=== PATIENT | male | born 1970 | race Caucasian/White ===

== ENCOUNTER 2019-02-18 10:14 | Inpatient (IN) | payer MEDICAID ==
[~2019-02-18] VITALS: Ht 185.4 cm; Wt 75.3 kg
[~2019-02-18 10:14] MED LIST: ACID1TAB7 PO; ACYC-113 PO; ALEN10TA7 PO; ALLO300T PO; CARV3.1212 PO; LISI-167 PO; METH750T2 PO; MORP-29 PO; OXYC5TAB3 PO; PANT40TA5 PO; RISP0.5T24 PO
[2019-02-18 13:33] VITALS: BP 125/87
[2019-02-18] MEDS ORDERED: METHOCARBAMOL 750 MG TABLET PO PRN (16:30)
[2019-02-18 16:36] LABS: BASOPHILS # (AUTO) 0.03 x10^3/uL (0-0.1); BASOPHILS % (AUTO) 0 % (0-1); EOSINOPHILS # (AUTO) 0.21 x10^3/uL (0-0.4); EOSINOPHILS % (AUTO) 4 % (1-7); LYMPHOCYTES # (AUTO) 1.58 x10^3/uL (1-3.4); LYMPHOCYTES % (AUTO) 26 % (22-44); MD NO; MEAN CORPUSCULAR HGB CONC 32.6 g/dL (33.2-36.2); MEAN CORPUSCULAR VOLUME 89.1 fL (81-97); MEAN PLATELET VOLUME 6.4 fL (7.4-10.4); MONOCYTES # (AUTO) 0.57 x10^3/uL (0.2-0.8); MONOCYTES % (AUTO) 10 % (2-9); NEUTROPHILS # (AUTO) 3.62 x10^3/uL (1.8-6.8); NEUTROPHILS % (AUTO) 60 % (42-75); PLATELET COUNT 494 x10^3/uL (130-400); RED CELL DISTRIBUTION WIDTH 17.4 % (9.4-14.8)
[2019-02-18 16:47] LABS: ALANINE AMINOTRANSFERASE 24 U/L (12-78); ALBUMIN 3.5 g/dL (3.4-5.0); ANION GAP 5 mmol/L (5-15); CALCIUM 9.3 mg/dL (8.5-10.1); CHLORIDE 102 mmol/L (98-107); CREATININE 0.64 mg/dL (0.7-1.3)
[2019-02-18 16:49] LABS: ALKALINE PHOSPHATASE 102 U/L (45-117); BILIRUBIN,TOTAL 0.4 mg/dL (0.2-1.0); TOTAL PROTEIN 9.4 g/dL (6.4-8.2)
[2019-02-18] MEDS: CARVEDILOL 3.125 MG TABLET PO SCH (18:04)
[2019-02-18 19:33] VITALS: BP 118/82
[2019-02-18] MEDS: LACTOBACILLUS CHEW TABLET PO SCH (20:33)
[2019-02-18] MEDS: ACYCLOVIR 200 MG CAPSULE PO SCH (20:33)
[2019-02-18] MEDS: RISPERIDONE 0.5 MG TABLET PO SCH (20:33)
[2019-02-19 01:19] VITALS: BP 103/73
[2019-02-19 05:14] LABS: BASOPHILS # (AUTO) 0.06 x10^3/uL (0-0.1); BASOPHILS % (AUTO) 1 % (0-1); EOSINOPHILS # (AUTO) 0.22 x10^3/uL (0-0.4); EOSINOPHILS % (AUTO) 4 % (1-7); LYMPHOCYTES # (AUTO) 1.75 x10^3/uL (1-3.4); LYMPHOCYTES % (AUTO) 33 % (22-44); MD NO; MEAN CORPUSCULAR HEMOGLOBIN 28.7 pg (27.5-34.5); MEAN CORPUSCULAR HGB CONC 32.4 g/dL (33.2-36.2); MEAN CORPUSCULAR VOLUME 88.6 fL (81-97); MEAN PLATELET VOLUME 7.5 fL (7.4-10.4); MONOCYTES # (AUTO) 0.58 x10^3/uL (0.2-0.8); MONOCYTES % (AUTO) 11 % (2-9); NEUTROPHILS # (AUTO) 2.71 x10^3/uL (1.8-6.8); NEUTROPHILS % (AUTO) 51 % (42-75); PLATELET COUNT 464 x10^3/uL (130-400); RED BLOOD COUNT 3.43 x10^6/uL (4.38-5.82); RED CELL DISTRIBUTION WIDTH 16.9 % (9.4-14.8)
[2019-02-19 05:17] LABS: ALBUMIN 3.2 g/dL (3.4-5.0); ANION GAP 5 mmol/L (5-15); CHLORIDE 102 mmol/L (98-107)
[2019-02-19 05:19] LABS: CREATININE 0.57 mg/dL (0.7-1.3)
[2019-02-19] MEDS: CARVEDILOL 3.125 MG TABLET PO SCH ×2 (05:23→18:33)
[2019-02-19] MEDS: ALENDRONATE 10 MG TABLET PO SCH (05:23)
[2019-02-19] MEDS: PANTOPROZOLE 40MG TABLET PO SCH (05:23)
[2019-02-19 08:31] VITALS: BP 108/76
[2019-02-19] MEDS: LACTOBACILLUS CHEW TABLET PO SCH ×3 (09:36→21:20)
[2019-02-19] MEDS: OXYcodone IR 5MG TABLET PO PRN ×2 (09:36→16:44)
[2019-02-19] MEDS: ACYCLOVIR 200 MG CAPSULE PO SCH ×3 (09:37→21:21)
[2019-02-19] MEDS: ALLOPURINOL 300 MG TABLET PO SCH (09:37)
[2019-02-19] MEDS: LISINOPRIL 10 MG TABLET PO SCH (09:37)
[2019-02-19] MEDS ORDERED: SODIUM CHLORIDE 0.9% 1,000 ML IV SCH (11:00)
[2019-02-19] MEDS ORDERED: ONDANSETRON 16 MG in SODIUM CHLORIDE 0.9% 50 ML IVPB ONE (12:30)
[2019-02-19] MEDS ORDERED: BORTEZOMIB SQ ONE (13:00)
[2019-02-19] MEDS ORDERED: SODIUM CHLORIDE 0.9% IV ONE (13:15)
[2019-02-19] MEDS ORDERED: CYCLOPHOSPHAMIDE IV ONE (13:15)
[2019-02-19] MEDS: ENOXAPARIN 40 MG/0.4 ML SQ SCH (13:18)
[2019-02-19] MEDS: SODIUM CHLORIDE 0.9% 1,000 ML IV SCH (13:18)
[2019-02-19 13:19] VITALS: BP 100/67
[2019-02-19] MEDS: DEXAMETHASONE 4 MG TABLET PO SCH (14:37)
[2019-02-19 19:06] VITALS: BP 97/60
[2019-02-19] MEDS ORDERED: ACYCLOVIR 200 MG CAPSULE PO SCH (21:00)
[2019-02-19] MEDS: RISPERIDONE 0.5 MG TABLET PO SCH (21:21)
[2019-02-20 01:22] VITALS: BP 102/64
[2019-02-20] MEDS: OXYcodone IR 5MG TABLET PO PRN ×3 (05:19→17:22)
[2019-02-20] MEDS: PANTOPROZOLE 40MG TABLET PO SCH (05:19)
[2019-02-20] MEDS: ALENDRONATE 10 MG TABLET PO SCH (05:19)
[2019-02-20] MEDS: CARVEDILOL 3.125 MG TABLET PO SCH ×2 (05:19→17:24)
[2019-02-20] MEDS: SODIUM CHLORIDE 0.9% 1,000 ML IV SCH ×2 (05:19→20:11)
[2019-02-20 05:22] LABS: BASOPHILS # (AUTO) 0.02 x10^3/uL (0-0.1); BASOPHILS % (AUTO) 1 % (0-1); EOSINOPHILS % (AUTO) 0 % (1-7); LYMPHOCYTES % (AUTO) 29 % (22-44); MD NO; MEAN CORPUSCULAR HEMOGLOBIN 28.5 pg (27.5-34.5); MEAN CORPUSCULAR HGB CONC 32.6 g/dL (33.2-36.2); MEAN CORPUSCULAR VOLUME 87.5 fL (81-97); MEAN PLATELET VOLUME 6.4 fL (7.4-10.4); MONOCYTES # (AUTO) 0.02 x10^3/uL (0.2-0.8); MONOCYTES % (AUTO) 1 % (2-9); NEUTROPHILS # (AUTO) 3.14 x10^3/uL (1.8-6.8); NEUTROPHILS % (AUTO) 70 % (42-75); PLATELET COUNT 390 x10^3/uL (130-400); RED BLOOD COUNT 3.22 x10^6/uL (4.38-5.82)
[2019-02-20 05:35] LABS: ALANINE AMINOTRANSFERASE 20 U/L (12-78); ANION GAP 4 mmol/L (5-15); CALCIUM 8.6 mg/dL (8.5-10.1); CHLORIDE 103 mmol/L (98-107); CREATININE 0.54 mg/dL (0.7-1.3)
[2019-02-20 05:36] LABS: ALKALINE PHOSPHATASE 91 U/L (45-117); BILIRUBIN,TOTAL 0.3 mg/dL (0.2-1.0); TOTAL PROTEIN 8.4 g/dL (6.4-8.2)
[2019-02-20 07:35] VITALS: BP 120/78
[2019-02-20] MEDS: LACTOBACILLUS CHEW TABLET PO SCH ×3 (08:12→20:11)
[2019-02-20] MEDS: ALLOPURINOL 300 MG TABLET PO SCH (08:12)
[2019-02-20] MEDS: ACYCLOVIR 200 MG CAPSULE PO SCH ×2 (08:12→20:11)
[2019-02-20] MEDS: LISINOPRIL 10 MG TABLET PO SCH (08:13)
[2019-02-20] MEDS: DEXAMETHASONE 4 MG TABLET PO SCH (11:45)
[2019-02-20] MEDS: ENOXAPARIN 40 MG/0.4 ML SQ SCH (11:49)
[2019-02-20 13:56] VITALS: BP 126/81
[2019-02-20] MEDS ORDERED: ONDANSETRON ODT 4 MG ONE (17:16)
[2019-02-20 17:20] VITALS: BP 132/84
[2019-02-20] MEDS ORDERED: ONDANSETRON ODT 4 MG PO PRN (17:30)
[2019-02-20 20:09] VITALS: BP 114/71
[2019-02-20] MEDS: RISPERIDONE 0.5 MG TABLET PO SCH (20:11)
[2019-02-21 02:21] VITALS: BP 119/79
[2019-02-21] MEDS: CARVEDILOL 3.125 MG TABLET PO SCH ×2 (05:27→18:17)
[2019-02-21] MEDS: ALENDRONATE 10 MG TABLET PO SCH (05:27)
[2019-02-21] MEDS: PANTOPROZOLE 40MG TABLET PO SCH (05:27)
[2019-02-21 06:12] LABS: ANION GAP 8 mmol/L (5-15); CALCIUM 8.3 mg/dL (8.5-10.1); CHLORIDE 107 mmol/L (98-107); CREATININE 0.78 mg/dL (0.7-1.3)
[2019-02-21 06:22] LABS: BASOPHILS # (AUTO) 0.03 x10^3/uL (0-0.1); BASOPHILS % (AUTO) 0 % (0-1); EOSINOPHILS % (AUTO) 0 % (1-7); LYMPHOCYTES % (AUTO) 11 % (22-44); MD NO; MEAN CORPUSCULAR HEMOGLOBIN 28.7 pg (27.5-34.5); MEAN CORPUSCULAR HGB CONC 32.3 g/dL (33.2-36.2); MEAN CORPUSCULAR VOLUME 88.8 fL (81-97); MEAN PLATELET VOLUME 7.3 fL (7.4-10.4); MONOCYTES # (AUTO) 0.18 x10^3/uL (0.2-0.8); MONOCYTES % (AUTO) 2 % (2-9); NEUTROPHILS # (AUTO) 7.48 x10^3/uL (1.8-6.8); NEUTROPHILS % (AUTO) 87 % (42-75); PLATELET COUNT 380 x10^3/uL (130-400); RED BLOOD COUNT 3.16 x10^6/uL (4.38-5.82); RED CELL DISTRIBUTION WIDTH 16.6 % (9.4-14.8)
[2019-02-21 07:48] VITALS: BP 130/82
[2019-02-21] MEDS: LACTOBACILLUS CHEW TABLET PO SCH ×3 (08:54→20:07)
[2019-02-21] MEDS: ALLOPURINOL 300 MG TABLET PO SCH (08:54)
[2019-02-21] MEDS: LISINOPRIL 10 MG TABLET PO SCH (08:54)
[2019-02-21] MEDS: ACYCLOVIR 200 MG CAPSULE PO SCH ×2 (08:55→20:07)
[2019-02-21] MEDS: SODIUM CHLORIDE 0.9% 1,000 ML IV SCH (08:55)
[2019-02-21 08:59] LABS: BASOPHILS # (AUTO) 0.03 x10^3/uL (0-0.1); BASOPHILS % (AUTO) 0 % (0-1); EOSINOPHILS # (AUTO) 0.05 x10^3/uL (0-0.4); EOSINOPHILS % (AUTO) 1 % (1-7); LYMPHOCYTES # (AUTO) 0.79 x10^3/uL (1-3.4); LYMPHOCYTES % (AUTO) 9 % (22-44); MD NO; MEAN CORPUSCULAR HEMOGLOBIN 28.5 pg (27.5-34.5); MEAN CORPUSCULAR HGB CONC 32.4 g/dL (33.2-36.2); MEAN CORPUSCULAR VOLUME 87.9 fL (81-97); MEAN PLATELET VOLUME 6.7 fL (7.4-10.4); MONOCYTES # (AUTO) 0.29 x10^3/uL (0.2-0.8); MONOCYTES % (AUTO) 3 % (2-9); NEUTROPHILS % (AUTO) 87 % (42-75); PLATELET COUNT 368 x10^3/uL (130-400); RED BLOOD COUNT 3.11 x10^6/uL (4.38-5.82); RED CELL DISTRIBUTION WIDTH 17.2 % (9.4-14.8)
[2019-02-21] MEDS: ENOXAPARIN 40 MG/0.4 ML SQ SCH (12:22)
[2019-02-21 13:26] VITALS: BP 114/74
[2019-02-21] MEDS: RISPERIDONE 0.5 MG TABLET PO SCH (20:08)
[2019-02-21] MEDS: OXYcodone IR 5MG TABLET PO PRN (20:16)
[2019-02-21 21:18] VITALS: BP 116/67
[2019-02-22] MEDS: SODIUM CHLORIDE 0.9% 1,000 ML IV SCH ×2 (00:23→15:40)
[2019-02-22 02:00] VITALS: BP 127/79
[2019-02-22 03:54] LABS: BASOPHILS # (AUTO) 0.01 x10^3/uL (0-0.1); BASOPHILS % (AUTO) 0 % (0-1); EOSINOPHILS % (AUTO) 0 % (1-7); LYMPHOCYTES # (AUTO) 0.85 x10^3/uL (1-3.4); LYMPHOCYTES % (AUTO) 12 % (22-44); MD NO; MEAN CORPUSCULAR HEMOGLOBIN 29.1 pg (27.5-34.5); MEAN CORPUSCULAR HGB CONC 32.6 g/dL (33.2-36.2); MEAN CORPUSCULAR VOLUME 89.2 fL (81-97); MEAN PLATELET VOLUME 6.9 fL (7.4-10.4); MONOCYTES # (AUTO) 0.55 x10^3/uL (0.2-0.8); MONOCYTES % (AUTO) 8 % (2-9); NEUTROPHILS # (AUTO) 5.77 x10^3/uL (1.8-6.8); NEUTROPHILS % (AUTO) 80 % (42-75); PLATELET COUNT 332 x10^3/uL (130-400); RED BLOOD COUNT 3.03 x10^6/uL (4.38-5.82); RED CELL DISTRIBUTION WIDTH 16.9 % (9.4-14.8)
[2019-02-22 04:05] LABS: ANION GAP 4 mmol/L (5-15); CHLORIDE 109 mmol/L (98-107)
[2019-02-22] MEDS: PANTOPROZOLE 40MG TABLET PO SCH (05:14)
[2019-02-22] MEDS: CARVEDILOL 3.125 MG TABLET PO SCH ×2 (05:14→16:18)
[2019-02-22] MEDS: ALENDRONATE 10 MG TABLET PO SCH (05:14)
[2019-02-22 07:31] VITALS: BP 137/85
[2019-02-22] MEDS: LISINOPRIL 10 MG TABLET PO SCH (09:49)
[2019-02-22] MEDS: LACTOBACILLUS CHEW TABLET PO SCH ×3 (09:49→20:15)
[2019-02-22] MEDS: ALLOPURINOL 300 MG TABLET PO SCH (09:49)
[2019-02-22] MEDS: ACYCLOVIR 200 MG CAPSULE PO SCH ×2 (09:49→20:16)
[2019-02-22] MEDS: DEXAMETHASONE 4 MG TABLET PO SCH (09:52)
[2019-02-22] MEDS: OXYcodone IR 5MG TABLET PO PRN ×2 (10:28→20:15)
[2019-02-22] MEDS: ENOXAPARIN 40 MG/0.4 ML SQ SCH (11:47)
[2019-02-22 13:04] VITALS: BP 119/76
[2019-02-22] MEDS ORDERED: BORTEZOMIB SQ ONE (15:00)
[2019-02-22] MEDS: POTASSIUM CHLORIDE 20 MEQ TAB.ER.PRT PO SCH (20:15)
[2019-02-22] MEDS: RISPERIDONE 0.5 MG TABLET PO SCH (20:15)
[2019-02-22 20:40] VITALS: BP 121/79
[2019-02-23 00:48] VITALS: BP 126/74
[2019-02-23] MEDS: SODIUM CHLORIDE 0.9% 1,000 ML IV SCH ×2 (02:52→17:08)
[2019-02-23 03:21] LABS: BASOPHILS # (AUTO) 0.08 x10^3/uL (0-0.1); BASOPHILS % (AUTO) 1 % (0-1); EOSINOPHILS # (AUTO) 0.03 x10^3/uL (0-0.4); EOSINOPHILS % (AUTO) 1 % (1-7); LYMPHOCYTES # (AUTO) 0.87 x10^3/uL (1-3.4); LYMPHOCYTES % (AUTO) 15 % (22-44); MD NO; MEAN CORPUSCULAR HGB CONC 32.6 g/dL (33.2-36.2); MEAN PLATELET VOLUME 7.1 fL (7.4-10.4); MONOCYTES # (AUTO) 0.19 x10^3/uL (0.2-0.8); MONOCYTES % (AUTO) 3 % (2-9); NEUTROPHILS # (AUTO) 4.73 x10^3/uL (1.8-6.8); NEUTROPHILS % (AUTO) 80 % (42-75); PLATELET COUNT 337 x10^3/uL (130-400); RED BLOOD COUNT 3.26 x10^6/uL (4.38-5.82); RED CELL DISTRIBUTION WIDTH 16.5 % (9.4-14.8)
[2019-02-23 03:29] LABS: ANION GAP 7 mmol/L (5-15); CHLORIDE 106 mmol/L (98-107); CREATININE 0.63 mg/dL (0.7-1.3)
[2019-02-23] MEDS: ALENDRONATE 10 MG TABLET PO SCH (05:37)
[2019-02-23] MEDS: PANTOPROZOLE 40MG TABLET PO SCH (05:37)
[2019-02-23] MEDS: CARVEDILOL 3.125 MG TABLET PO SCH ×2 (05:37→17:06)
[2019-02-23] MEDS ORDERED: MAGNESIUM SULFATE PMX 2GM/50ML 50 ML IV ONE (07:00)
[2019-02-23 07:58] VITALS: BP 128/79
[2019-02-23] MEDS: POTASSIUM CHLORIDE 20 MEQ TAB.ER.PRT PO SCH ×3 (08:25→17:06)
[2019-02-23] MEDS: ACYCLOVIR 200 MG CAPSULE PO SCH ×2 (08:26→20:15)
[2019-02-23] MEDS: ALLOPURINOL 300 MG TABLET PO SCH (08:26)
[2019-02-23] MEDS: LACTOBACILLUS CHEW TABLET PO SCH ×3 (08:26→20:15)
[2019-02-23] MEDS: LISINOPRIL 10 MG TABLET PO SCH (08:26)
[2019-02-23] MEDS: DEXAMETHASONE 4 MG TABLET PO SCH (08:27)
[2019-02-23] MEDS: OXYcodone IR 5MG TABLET PO PRN ×2 (08:35→20:29)
[2019-02-23] MEDS: ENOXAPARIN 40 MG/0.4 ML SQ SCH (11:37)
[2019-02-23 13:59] VITALS: BP 121/81
[2019-02-23 20:13] VITALS: BP 147/89
[2019-02-23] MEDS: RISPERIDONE 0.5 MG TABLET PO SCH (20:15)
[2019-02-24 01:29] VITALS: BP 142/87
[2019-02-24] MEDS: ALENDRONATE 10 MG TABLET PO SCH (05:31)
[2019-02-24] MEDS: CARVEDILOL 3.125 MG TABLET PO SCH ×2 (05:31→18:10)
[2019-02-24] MEDS: PANTOPROZOLE 40MG TABLET PO SCH (05:32)
[2019-02-24] MEDS: SODIUM CHLORIDE 0.9% 1,000 ML IV SCH ×2 (05:32→21:39)
[2019-02-24 05:38] LABS: BASOPHILS # (AUTO) 0.11 x10^3/uL (0-0.1); BASOPHILS % (AUTO) 1 % (0-1); EOSINOPHILS # (AUTO) 0.02 x10^3/uL (0-0.4); EOSINOPHILS % (AUTO) 0 % (1-7); LYMPHOCYTES # (AUTO) 0.69 x10^3/uL (1-3.4); LYMPHOCYTES % (AUTO) 7 % (22-44); MD NO; MEAN CORPUSCULAR HEMOGLOBIN 29.3 pg (27.5-34.5); MEAN CORPUSCULAR HGB CONC 33.4 g/dL (33.2-36.2); MEAN CORPUSCULAR VOLUME 87.8 fL (81-97); MEAN PLATELET VOLUME 7.5 fL (7.4-10.4); MONOCYTES # (AUTO) 0.39 x10^3/uL (0.2-0.8); MONOCYTES % (AUTO) 4 % (2-9); NEUTROPHILS # (AUTO) 8.37 x10^3/uL (1.8-6.8); NEUTROPHILS % (AUTO) 87 % (42-75); PLATELET COUNT 302 x10^3/uL (130-400); RED BLOOD COUNT 3.22 x10^6/uL (4.38-5.82); RED CELL DISTRIBUTION WIDTH 16.7 % (9.4-14.8)
[2019-02-24 08:33] VITALS: BP 128/79
[2019-02-24] MEDS: POTASSIUM CHLORIDE 20 MEQ TAB.ER.PRT PO SCH ×3 (08:38→18:09)
[2019-02-24] MEDS: LISINOPRIL 20 MG TABLET PO SCH (08:39)
[2019-02-24] MEDS: LACTOBACILLUS CHEW TABLET PO SCH ×3 (08:39→21:37)
[2019-02-24] MEDS: ACYCLOVIR 200 MG CAPSULE PO SCH ×2 (08:40→21:37)
[2019-02-24] MEDS: ALLOPURINOL 300 MG TABLET PO SCH (08:40)
[2019-02-24] MEDS: ENOXAPARIN 40 MG/0.4 ML SQ SCH (12:12)
[2019-02-24 14:00] VITALS: BP 120/76
[2019-02-24] MEDS: OXYcodone IR 5MG TABLET PO PRN ×2 (15:45→21:38)
[2019-02-24 19:13] VITALS: BP 131/85
[2019-02-24] MEDS: RISPERIDONE 0.5 MG TABLET PO SCH (21:39)
[2019-02-25 00:41] VITALS: BP 126/83
[2019-02-25] MEDS: PANTOPROZOLE 40MG TABLET PO SCH (05:41)
[2019-02-25] MEDS: ALENDRONATE 10 MG TABLET PO SCH (05:41)
[2019-02-25] MEDS: CARVEDILOL 3.125 MG TABLET PO SCH ×2 (05:42→16:43)
[2019-02-25 06:33] LABS: BASOPHILS # (AUTO) 0.05 x10^3/uL (0-0.1); BASOPHILS % (AUTO) 1 % (0-1); EOSINOPHILS # (AUTO) 0.16 x10^3/uL (0-0.4); EOSINOPHILS % (AUTO) 2 % (1-7); LYMPHOCYTES # (AUTO) 0.89 x10^3/uL (1-3.4); LYMPHOCYTES % (AUTO) 12 % (22-44); MD NO; MEAN CORPUSCULAR HEMOGLOBIN 28.8 pg (27.5-34.5); MEAN CORPUSCULAR HGB CONC 32.2 g/dL (33.2-36.2); MEAN CORPUSCULAR VOLUME 89.5 fL (81-97); MEAN PLATELET VOLUME 7.6 fL (7.4-10.4); MONOCYTES # (AUTO) 0.44 x10^3/uL (0.2-0.8); MONOCYTES % (AUTO) 6 % (2-9); NEUTROPHILS # (AUTO) 5.88 x10^3/uL (1.8-6.8); NEUTROPHILS % (AUTO) 79 % (42-75); PLATELET COUNT 293 x10^3/uL (130-400); RED BLOOD COUNT 3.26 x10^6/uL (4.38-5.82)
[2019-02-25 08:30] VITALS: BP 116/78
[2019-02-25] MEDS: ACYCLOVIR 200 MG CAPSULE PO SCH ×2 (11:00→22:06)
[2019-02-25] MEDS: LACTOBACILLUS CHEW TABLET PO SCH ×3 (11:00→22:06)
[2019-02-25] MEDS: LISINOPRIL 20 MG TABLET PO SCH (11:00)
[2019-02-25] MEDS: ALLOPURINOL 300 MG TABLET PO SCH (11:00)
[2019-02-25] MEDS: POTASSIUM CHLORIDE 20 MEQ TAB.ER.PRT PO SCH (11:00)
[2019-02-25] MEDS: SODIUM CHLORIDE 0.9% 1,000 ML IV SCH (11:01)
[2019-02-25] MEDS: ENOXAPARIN 40 MG/0.4 ML SQ SCH (12:27)
[2019-02-25 13:36] VITALS: BP 117/80
[2019-02-25 13:56] LABS: ANION GAP 6 mmol/L (5-15); CALCIUM 8.1 mg/dL (8.5-10.1); CHLORIDE 105 mmol/L (98-107); CREATININE 0.53 mg/dL (0.7-1.3)
[2019-02-25 18:38] VITALS: BP 119/80
[2019-02-25] MEDS: OXYcodone IR 5MG TABLET PO PRN (22:06)
[2019-02-25] MEDS: RISPERIDONE 0.5 MG TABLET PO SCH (22:07)
[2019-02-26 01:06] VITALS: BP 118/77
[2019-02-26] MEDS: SODIUM CHLORIDE 0.9% 1,000 ML IV SCH ×2 (03:38→15:41)
[2019-02-26] MEDS: PANTOPROZOLE 40MG TABLET PO SCH (05:27)
[2019-02-26] MEDS: ALENDRONATE 10 MG TABLET PO SCH (05:27)
[2019-02-26] MEDS: CARVEDILOL 3.125 MG TABLET PO SCH ×2 (05:27→17:07)
[2019-02-26 06:09] LABS: MEAN CORPUSCULAR HEMOGLOBIN 28.1 pg (27.5-34.5); MEAN CORPUSCULAR HGB CONC 32.3 g/dL (33.2-36.2); MEAN CORPUSCULAR VOLUME 87.1 fL (81-97); MEAN PLATELET VOLUME 7.7 fL (7.4-10.4); PLATELET COUNT 271 x10^3/uL (130-400); RED BLOOD COUNT 3.41 x10^6/uL (4.38-5.82)
[2019-02-26 07:01] LABS: MD YES
[2019-02-26 07:04] LABS: BAND#(MANUAL) 0.06 x10^3/uL; BANDS%(MANUAL) 1 % (0-7); EOS#(MANUAL) 0.32 x10^3/uL (0.0-0.4); EOS% (MANUAL) 5 % (1-7); LYMPH#(MANUAL) 1.54 x10^3/uL (1-3.4); LYMPHS% (MANUAL) 24 % (22-44); METAMYELOCYTES# (MANUAL) 0.26 x10^3/uL (0-0); METAMYELOCYTES% (MANUAL) 4 % (0-1); MONOS#(MANUAL) 0.51 x10^3/uL (0.3-2.7); MONOS% (MANUAL) 8 % (2-9); MYELOCYTES# (MANUAL) 0.13 x10^3/uL (0-0); MYELOCYTES% (MANUAL) 2 % (0-0); SEG#(MANUAL) 3.58 x10^3/uL (1.8-6.8); SEGS% (MANUAL) 56 % (42-75)
[2019-02-26 07:09] LABS: ANISOCYTOSIS 2+; HYPOCHROMIA 1+; POLYCHROMASIA 1+
[2019-02-26 07:10] LABS: <PLATELET ESTIMATE> ADEQUATE; <PLT MORPHOLOGY> NORMAL PLT MORPH; OVALOCYTES 1+; ROULEAUX 1+
[2019-02-26 08:06] VITALS: BP 129/83
[2019-02-26] MEDS: ALLOPURINOL 300 MG TABLET PO SCH (10:12)
[2019-02-26] MEDS: ACYCLOVIR 200 MG CAPSULE PO SCH ×2 (10:12→21:20)
[2019-02-26] MEDS: DEXAMETHASONE 4 MG TABLET PO SCH (10:12)
[2019-02-26] MEDS: LACTOBACILLUS CHEW TABLET PO SCH ×3 (10:13→21:20)
[2019-02-26] MEDS: LISINOPRIL 20 MG TABLET PO SCH (10:33)
[2019-02-26 12:51] VITALS: BP 121/81
[2019-02-26] MEDS: ENOXAPARIN 40 MG/0.4 ML SQ SCH (13:37)
[2019-02-26] MEDS ORDERED: GADOTERATE 10 MMOL/20 ML SYR ONE (15:16)
[2019-02-26] MEDS ORDERED: BORTEZOMIB SQ ONE (15:30)
[2019-02-26 19:21] VITALS: BP 127/84
[2019-02-26] MEDS: RISPERIDONE 0.5 MG TABLET PO SCH (21:21)
[2019-02-27 01:54] VITALS: BP 118/76
[2019-02-27] MEDS: SODIUM CHLORIDE 0.9% 1,000 ML IV SCH ×2 (02:43→16:33)
[2019-02-27 02:50] LABS: BASOPHILS # (AUTO) 0.02 x10^3/uL (0-0.1); BASOPHILS % (AUTO) 0 % (0-1); EOSINOPHILS # (AUTO) 0.01 x10^3/uL (0-0.4); EOSINOPHILS % (AUTO) 0 % (1-7); LYMPHOCYTES # (AUTO) 1.15 x10^3/uL (1-3.4); LYMPHOCYTES % (AUTO) 17 % (22-44); MD NO; MEAN CORPUSCULAR HEMOGLOBIN 28.7 pg (27.5-34.5); MEAN CORPUSCULAR HGB CONC 32.7 g/dL (33.2-36.2); MEAN CORPUSCULAR VOLUME 87.7 fL (81-97); MEAN PLATELET VOLUME 7.8 fL (7.4-10.4); MONOCYTES # (AUTO) 0.03 x10^3/uL (0.2-0.8); MONOCYTES % (AUTO) 1 % (2-9); NEUTROPHILS # (AUTO) 5.58 x10^3/uL (1.8-6.8); NEUTROPHILS % (AUTO) 82 % (42-75); PLATELET COUNT 278 x10^3/uL (130-400); RED BLOOD COUNT 3.44 x10^6/uL (4.38-5.82); RED CELL DISTRIBUTION WIDTH 17.8 % (9.4-14.8)
[2019-02-27] MEDS: PANTOPROZOLE 40MG TABLET PO SCH (05:23)
[2019-02-27] MEDS: ALENDRONATE 10 MG TABLET PO SCH (05:23)
[2019-02-27] MEDS: CARVEDILOL 3.125 MG TABLET PO SCH ×2 (05:24→16:33)
[2019-02-27 07:01] VITALS: BP 120/82
[2019-02-27] MEDS: LACTOBACILLUS CHEW TABLET PO SCH ×3 (09:37→21:48)
[2019-02-27] MEDS: ALLOPURINOL 300 MG TABLET PO SCH (09:37)
[2019-02-27] MEDS: LISINOPRIL 20 MG TABLET PO SCH (09:37)
[2019-02-27] MEDS: ACYCLOVIR 200 MG CAPSULE PO SCH ×2 (09:38→21:48)
[2019-02-27] MEDS: DEXAMETHASONE 4 MG TABLET PO SCH (09:38)
[2019-02-27] MEDS: ENOXAPARIN 40 MG/0.4 ML SQ SCH (12:15)
[2019-02-27 13:36] VITALS: BP 102/62
[2019-02-27] MEDS ORDERED: CALCIUM CARBONATE 500 MG TAB.CHEW PO SCH (15:17)
[2019-02-27] MEDS ORDERED: ZOLEDRONIC ACID 4MG/100ML 100 ML IV ONE (16:00)
[2019-02-27] MEDS: CALCIUM CARBONATE 500 MG TABLET PO SCH ×2 (16:38→21:49)
[2019-02-27] MEDS ORDERED: ZOLEDRONIC ACID 4 MG in SODIUM CHLORIDE 0.9% 100 ML IVPB ONE (18:30)
[2019-02-27 19:03] VITALS: BP 127/78
[2019-02-27] MEDS: RISPERIDONE 0.5 MG TABLET PO SCH (21:49)
[2019-02-28 00:21] VITALS: BP 131/80
[2019-02-28] MEDS: SODIUM CHLORIDE 0.9% 1,000 ML IV SCH ×2 (05:30→20:52)
[2019-02-28] MEDS: ALENDRONATE 10 MG TABLET PO SCH (05:32)
[2019-02-28] MEDS: PANTOPROZOLE 40MG TABLET PO SCH (05:32)
[2019-02-28] MEDS: CARVEDILOL 3.125 MG TABLET PO SCH ×2 (05:32→16:45)
[2019-02-28 06:31] LABS: ANION GAP 5 mmol/L (5-15); CALCIUM 8.3 mg/dL (8.5-10.1); CHLORIDE 106 mmol/L (98-107)
[2019-02-28 06:32] LABS: CREATININE 0.65 mg/dL (0.7-1.3)
[2019-02-28 06:36] LABS: BASOPHILS # (AUTO) 0.02 x10^3/uL (0-0.1); BASOPHILS % (AUTO) 0 % (0-1); EOSINOPHILS % (AUTO) 0 % (1-7); LYMPHOCYTES # (AUTO) 0.75 x10^3/uL (1-3.4); LYMPHOCYTES % (AUTO) 7 % (22-44); MD NO; MEAN CORPUSCULAR HGB CONC 32.3 g/dL (33.2-36.2); MEAN CORPUSCULAR VOLUME 89.9 fL (81-97); MEAN PLATELET VOLUME 8.4 fL (7.4-10.4); MONOCYTES # (AUTO) 0.17 x10^3/uL (0.2-0.8); MONOCYTES % (AUTO) 2 % (2-9); NEUTROPHILS # (AUTO) 9.61 x10^3/uL (1.8-6.8); NEUTROPHILS % (AUTO) 91 % (42-75); PLATELET COUNT 232 x10^3/uL (130-400); RED CELL DISTRIBUTION WIDTH 18.2 % (9.4-14.8)
[2019-02-28 08:31] VITALS: BP 135/86
[2019-02-28] MEDS: CALCIUM CARBONATE 500 MG TABLET PO SCH ×2 (08:54→20:51)
[2019-02-28] MEDS: LISINOPRIL 20 MG TABLET PO SCH (08:54)
[2019-02-28] MEDS: ALLOPURINOL 300 MG TABLET PO SCH (08:54)
[2019-02-28] MEDS: ACYCLOVIR 200 MG CAPSULE PO SCH ×2 (08:55→20:51)
[2019-02-28] MEDS: LACTOBACILLUS CHEW TABLET PO SCH ×3 (08:55→20:51)
[2019-02-28] MEDS: ENOXAPARIN 40 MG/0.4 ML SQ SCH (11:38)
[2019-02-28 14:54] VITALS: BP 126/81
[2019-02-28 20:13] VITALS: BP 134/82
[2019-02-28] MEDS: RISPERIDONE 0.5 MG TABLET PO SCH (20:51)
[2019-03-01] MEDS: SODIUM CHLORIDE 0.9% 1,000 ML IV SCH ×2 (00:37→14:26)
[2019-03-01 03:01] VITALS: BP 113/72
[2019-03-01] MEDS: PANTOPROZOLE 40MG TABLET PO SCH (05:39)
[2019-03-01] MEDS: ALENDRONATE 10 MG TABLET PO SCH (05:39)
[2019-03-01] MEDS: CARVEDILOL 3.125 MG TABLET PO SCH ×2 (05:39→17:05)
[2019-03-01 06:10] LABS: BASOPHILS # (AUTO) 0.02 x10^3/uL (0-0.1); BASOPHILS % (AUTO) 0 % (0-1); EOSINOPHILS # (AUTO) 0.01 x10^3/uL (0-0.4); EOSINOPHILS % (AUTO) 0 % (1-7); LYMPHOCYTES % (AUTO) 16 % (22-44); MD NO; MEAN CORPUSCULAR HGB CONC 32.9 g/dL (33.2-36.2); MEAN CORPUSCULAR VOLUME 88.1 fL (81-97); MEAN PLATELET VOLUME 7.9 fL (7.4-10.4); MONOCYTES # (AUTO) 0.33 x10^3/uL (0.2-0.8); MONOCYTES % (AUTO) 7 % (2-9); NEUTROPHILS # (AUTO) 3.39 x10^3/uL (1.8-6.8); NEUTROPHILS % (AUTO) 76 % (42-75); PLATELET COUNT 194 x10^3/uL (130-400); RED CELL DISTRIBUTION WIDTH 18.5 % (9.4-14.8)
[2019-03-01 07:35] VITALS: BP 120/72
[2019-03-01] MEDS: LISINOPRIL 20 MG TABLET PO SCH (08:13)
[2019-03-01] MEDS: DEXAMETHASONE 4 MG TABLET PO SCH (08:13)
[2019-03-01] MEDS: ACYCLOVIR 200 MG CAPSULE PO SCH ×2 (08:13→21:32)
[2019-03-01] MEDS: ALLOPURINOL 300 MG TABLET PO SCH (08:13)
[2019-03-01] MEDS: LACTOBACILLUS CHEW TABLET PO SCH ×3 (08:13→21:32)
[2019-03-01] MEDS: CALCIUM CARBONATE 500 MG TABLET PO SCH ×2 (08:13→21:31)
[2019-03-01] MEDS: ENOXAPARIN 40 MG/0.4 ML SQ SCH (11:11)
[2019-03-01 13:22] VITALS: BP 130/86
[2019-03-01] MEDS ORDERED: BORTEZOMIB SQ ONE ×2 (14:00→15:00)
[2019-03-01 21:25] VITALS: BP 138/79
[2019-03-01] MEDS: RISPERIDONE 0.5 MG TABLET PO SCH (21:32)
[2019-03-02] VITALS: BP 130/84
[2019-03-02] MEDS: SODIUM CHLORIDE 0.9% 1,000 ML IV SCH (03:58)
[2019-03-02] MEDS: ALENDRONATE 10 MG TABLET PO SCH (05:26)
[2019-03-02] MEDS: CARVEDILOL 3.125 MG TABLET PO SCH ×2 (05:26→16:51)
[2019-03-02] MEDS: PANTOPROZOLE 40MG TABLET PO SCH (05:26)
[2019-03-02 05:51] LABS: BASOPHILS # (AUTO) 0.02 x10^3/uL (0-0.1); BASOPHILS % (AUTO) 0 % (0-1); EOSINOPHILS % (AUTO) 0 % (1-7); LYMPHOCYTES # (AUTO) 0.65 x10^3/uL (1-3.4); LYMPHOCYTES % (AUTO) 6 % (22-44); MD NO; MEAN CORPUSCULAR HEMOGLOBIN 29.1 pg (27.5-34.5); MEAN CORPUSCULAR HGB CONC 32.5 g/dL (33.2-36.2); MEAN CORPUSCULAR VOLUME 89.6 fL (81-97); MEAN PLATELET VOLUME 8.6 fL (7.4-10.4); MONOCYTES # (AUTO) 0.38 x10^3/uL (0.2-0.8); MONOCYTES % (AUTO) 3 % (2-9); NEUTROPHILS # (AUTO) 10.25 x10^3/uL (1.8-6.8); NEUTROPHILS % (AUTO) 91 % (42-75); PLATELET COUNT 190 x10^3/uL (130-400); RED BLOOD COUNT 3.18 x10^6/uL (4.38-5.82); RED CELL DISTRIBUTION WIDTH 18.8 % (9.4-14.8)
[2019-03-02 07:31] VITALS: BP 136/86
[2019-03-02] MEDS: CALCIUM CARBONATE 500 MG TABLET PO SCH ×2 (09:32→20:18)
[2019-03-02] MEDS: DEXAMETHASONE 4 MG TABLET PO SCH (09:32)
[2019-03-02] MEDS: LISINOPRIL 20 MG TABLET PO SCH (09:32)
[2019-03-02] MEDS: ALLOPURINOL 300 MG TABLET PO SCH (09:32)
[2019-03-02] MEDS: LACTOBACILLUS CHEW TABLET PO SCH ×3 (09:32→20:18)
[2019-03-02] MEDS: ACYCLOVIR 200 MG CAPSULE PO SCH ×2 (09:32→20:18)
[2019-03-02] MEDS: ENOXAPARIN 40 MG/0.4 ML SQ SCH (13:08)
[2019-03-02 13:44] VITALS: BP 127/79
[2019-03-02] MEDS: OXYcodone IR 5MG TABLET PO PRN ×2 (15:18→22:18)
[2019-03-02 16:49] VITALS: BP 125/82
[2019-03-02] MEDS: RISPERIDONE 0.5 MG TABLET PO SCH (20:20)
[2019-03-02 20:55] VITALS: BP 141/87
[2019-03-03 01:49] VITALS: BP 135/86
[2019-03-03] MEDS: CARVEDILOL 3.125 MG TABLET PO SCH ×2 (05:48→18:01)
[2019-03-03] MEDS: ALENDRONATE 10 MG TABLET PO SCH (05:48)
[2019-03-03] MEDS: PANTOPROZOLE 40MG TABLET PO SCH (05:49)
[2019-03-03 06:50] LABS: BASOPHILS % (AUTO) 0 % (0-1); EOSINOPHILS % (AUTO) 0 % (1-7); LYMPHOCYTES # (AUTO) 0.71 x10^3/uL (1-3.4); LYMPHOCYTES % (AUTO) 6 % (22-44); MD NO; MEAN CORPUSCULAR HEMOGLOBIN 29.1 pg (27.5-34.5); MEAN CORPUSCULAR HGB CONC 32.2 g/dL (33.2-36.2); MEAN CORPUSCULAR VOLUME 90.4 fL (81-97); MEAN PLATELET VOLUME 9.3 fL (7.4-10.4); MONOCYTES # (AUTO) 0.34 x10^3/uL (0.2-0.8); MONOCYTES % (AUTO) 3 % (2-9); NEUTROPHILS # (AUTO) 10.05 x10^3/uL (1.8-6.8); NEUTROPHILS % (AUTO) 91 % (42-75); PLATELET COUNT 183 x10^3/uL (130-400); RED BLOOD COUNT 3.39 x10^6/uL (4.38-5.82); RED CELL DISTRIBUTION WIDTH 18.6 % (9.4-14.8)
[2019-03-03 07:50] VITALS: BP 143/89
[2019-03-03] MEDS: ALLOPURINOL 300 MG TABLET PO SCH (09:12)
[2019-03-03] MEDS: LACTOBACILLUS CHEW TABLET PO SCH ×3 (09:12→22:05)
[2019-03-03] MEDS: CALCIUM CARBONATE 500 MG TABLET PO SCH ×2 (09:12→22:04)
[2019-03-03] MEDS: ACYCLOVIR 200 MG CAPSULE PO SCH ×2 (09:12→22:04)
[2019-03-03] MEDS: LISINOPRIL 20 MG TABLET PO SCH (09:13)
[2019-03-03] MEDS: ENOXAPARIN 40 MG/0.4 ML SQ SCH (11:23)
[2019-03-03 14:30] VITALS: BP 131/80
[2019-03-03 20:12] VITALS: BP 126/80
[2019-03-03] MEDS: RISPERIDONE 0.5 MG TABLET PO SCH (22:05)
[2019-03-04 01:54] VITALS: BP 130/84
[2019-03-04] MEDS: OXYcodone IR 5MG TABLET PO PRN (02:03)
[2019-03-04] MEDS: CARVEDILOL 3.125 MG TABLET PO SCH ×2 (05:49→17:31)
[2019-03-04] MEDS: ALENDRONATE 10 MG TABLET PO SCH (05:49)
[2019-03-04] MEDS: PANTOPROZOLE 40MG TABLET PO SCH (05:49)
[2019-03-04 08:14] VITALS: BP 131/88
[2019-03-04] MEDS: LISINOPRIL 20 MG TABLET PO SCH (08:59)
[2019-03-04] MEDS: CALCIUM CARBONATE 500 MG TABLET PO SCH (08:59)
[2019-03-04] MEDS: ALLOPURINOL 300 MG TABLET PO SCH (08:59)
[2019-03-04] MEDS: LACTOBACILLUS CHEW TABLET PO SCH ×2 (08:59→17:31)
[2019-03-04] MEDS: ACYCLOVIR 200 MG CAPSULE PO SCH (08:59)
[2019-03-04] MEDS: ENOXAPARIN 40 MG/0.4 ML SQ SCH (12:46)
[2019-03-04 13:24] LABS: MEAN CORPUSCULAR HEMOGLOBIN 29.3 pg (27.5-34.5); MEAN CORPUSCULAR HGB CONC 32.7 g/dL (33.2-36.2); MEAN CORPUSCULAR VOLUME 89.7 fL (81-97); MEAN PLATELET VOLUME 9.1 fL (7.4-10.4); PLATELET COUNT 185 x10^3/uL (130-400); RED BLOOD COUNT 3.51 x10^6/uL (4.38-5.82); RED CELL DISTRIBUTION WIDTH 19.1 % (9.4-14.8)
[2019-03-04 13:33] LABS: MD YES
[2019-03-04 13:36] LABS: <PLATELET ESTIMATE> ADEQUATE; <PLT MORPHOLOGY> NORMAL PLT MORPH; ANISOCYTOSIS 1+; BAND#(MANUAL) 0.51 x10^3/uL; BANDS%(MANUAL) 5 % (0-7); HYPOCHROMIA 1+; LYMPH#(MANUAL) 1.11 x10^3/uL (1-3.4); LYMPHS% (MANUAL) 11 % (22-44); METAMYELOCYTES% (MANUAL) 4 % (0-1); MONOS#(MANUAL) 0.81 x10^3/uL (0.3-2.7); MONOS% (MANUAL) 8 % (2-9); MYELOCYTES% (MANUAL) 2 % (0-0); SEG#(MANUAL) 7.07 x10^3/uL (1.8-6.8); SEGS% (MANUAL) 70 % (42-75)
[2019-03-04 14:00] VITALS: BP 114/75
[2019-03-04] MEDS ORDERED: CALC500T11 PO (15:16)
[2019-03-04] MEDS ORDERED: ONDA4TAB13 PO (15:16)
[2019-03-04] MEDS ORDERED: POLY17PO5 PO (15:28)
== END 2019-03-04 19:42 | disposition home or self-care (01) | DRG 847 ==
LOC: 4NW 13:40 → UNDODISIN 03-04 17:47
PROVIDERS: ADMIT Family Medicine; ATTEND Internal Medicine
DX: Z51.11 Encounter for antineoplastic chemotherapy (principal); C90.00 Multiple myeloma not having achieved remission; D68.69 Other thrombophilia; E46 Unspecified protein-calorie malnutrition; E87.1 Hypo-osmolality and hyponatremia; L02.416 Cutaneous abscess of left lower limb; M84.48XA Pathological fracture, other site, initial encounter for fracture; M87.9 Osteonecrosis, unspecified; N17.9 Acute kidney failure, unspecified; R78.81 Bacteremia; B96.89 Other specified bacterial agents as the cause of diseases classified elsewhere; D63.0 Anemia in neoplastic disease; D69.6 Thrombocytopenia, unspecified; D72.829 Elevated white blood cell count, unspecified; Z68.21 Body mass index [BMI] 21.0-21.9, adult; G89.3 Neoplasm related pain (acute) (chronic); I10 Essential (primary) hypertension; K08.9 Disorder of teeth and supporting structures, unspecified; M54.81 Occipital neuralgia; N20.0 Calculus of kidney; T38.0X5A Adverse effect of glucocorticoids and synthetic analogues, initial encounter; Y92.89 Other specified places as the place of occurrence of the external cause; Z87.442 Personal history of urinary calculi; Z91.81 History of falling; C80.1 Malignant (primary) neoplasm, unspecified
CPT/HCPCS: 36415; 71045; 72050; 72072; 72110; 72125; 72156; 80048; 80053; 80069; 82784; 83735; 83883; 84155; 84156; 84165; 84166; 85025; 86334; 86335; G0378; J1650; J2405; J3489; J9070; Q0162; A9575; J3475; J7030; J7050; J9041

== ENCOUNTER 2019-06-10 11:07 | Emergency (ER) | payer MEDICAID ==
[~2019-06-10] VITALS: Ht 185.4 cm; Wt 78.0 kg
[~2019-06-10 11:07] MED LIST changes: +ALEN10TA10 PO; -ALEN10TA7 PO; +CALC500T11 PO; +ONDA4TAB13 PO; +POLY17PO5 PO
--- NOTE | 2019-06-10 11:33 | NUR ---
PT AMBULATED TO ED, REPORTS DR. SHAW SENT PT TO ED FOR LOW SPO2. PT DENIES FEELING SHORT OF BREATH, DENIES CP, DENIES ABD PAIN, DENIES LE PAIN. PT REPORTS WOULD NOT HAVE COME TO ED TODAY EXCEPT FOR PCP. PT REPORTS WAS TO RECEIVE "CHEMO SHOT" TODAY. VS REASSESSED. PT CURRENTLY 94% ON RA, NO SHORTNESS OF BREATH NOTED. PT PLACED ON IT [employer].
[2019-06-10] MEDS ORDERED: SODIUM CHLORIDE FLUSH 10ML SYR IVF ONE (12:00)
[2019-06-10 12:16] LABS: BASOPHILS # (AUTO) 0.03 x10^3/uL (0-0.1); BASOPHILS % (AUTO) 1 % (0-1); EOSINOPHILS # (AUTO) 0.08 x10^3/uL (0-0.4); EOSINOPHILS % (AUTO) 2 % (1-7); LYMPHOCYTES # (AUTO) 0.84 x10^3/uL (1-3.4); LYMPHOCYTES % (AUTO) 18 % (22-44); MD NO; MEAN CORPUSCULAR HEMOGLOBIN 29.5 pg (27.5-34.5); MEAN CORPUSCULAR HGB CONC 32.8 g/dL (33.2-36.2); MEAN CORPUSCULAR VOLUME 89.9 fL (81-97); MEAN PLATELET VOLUME 6.4 fL (7.4-10.4); MONOCYTES # (AUTO) 0.79 x10^3/uL (0.2-0.8); MONOCYTES % (AUTO) 17 % (2-9); NEUTROPHILS # (AUTO) 2.95 x10^3/uL (1.8-6.8); NEUTROPHILS % (AUTO) 63 % (42-75); PLATELET COUNT 207 x10^3/uL (130-400); RED BLOOD COUNT 4.58 x10^6/uL (4.38-5.82); RED CELL DISTRIBUTION WIDTH 16.2 % (9.4-14.8)
[2019-06-10 12:24] LABS: ALANINE AMINOTRANSFERASE 42 U/L (12-78); ALBUMIN 3.7 g/dL (3.4-5.0); ANION GAP 10 mmol/L (5-15); CALCIUM 8.3 mg/dL (8.5-10.1); CHLORIDE 101 mmol/L (98-107)
[2019-06-10 12:27] LABS: ALKALINE PHOSPHATASE 67 U/L (45-117); BILIRUBIN,TOTAL 0.8 mg/dL (0.2-1.0); TOTAL PROTEIN 7.3 g/dL (6.4-8.2); TROPONIN I < 0.015 ng/mL (0.000-0.045)
--- NOTE | 2019-06-10 12:35 | NUR ---
PT RESTING QUIETLY AT THIS TIME, DENIES ANY NEEDS. AWARE WAITING FOR CHART REVIEW BY ERP.
[2019-06-10] MEDS ORDERED: PIPERACILLIN/TAZO/PMX 3.375GM 50 ML ONE (13:42)
--- NOTE | 2019-06-10 13:55 | NUR ---
PIV PLACED IN LAC, ANTIBX INFUSING ORDERED. PT DENIES ANY NEEDS AT THIS TIME.
[2019-06-10] MEDS ORDERED: VANCOMYCIN 1,800 MG in SODIUM CHLORIDE 0.9% 250 ML IV ONE (14:00)
[2019-06-10] MEDS ORDERED: VANCOMYCIN PER PHARMACY MC ONE (14:00)
[2019-06-10] MEDS ORDERED: PIPERACILLIN/TAZO/PMX 3.375GM 50 ML IVPB ONE (14:00)
[2019-06-10 14:24] LABS: BASOPHILS # (AUTO) 0.05 x10^3/uL (0-0.1); BASOPHILS % (AUTO) 1 % (0-1); EOSINOPHILS # (AUTO) 0.04 x10^3/uL (0-0.4); EOSINOPHILS % (AUTO) 1 % (1-7); LYMPHOCYTES # (AUTO) 0.97 x10^3/uL (1-3.4); LYMPHOCYTES % (AUTO) 20 % (22-44); MD NO; MEAN CORPUSCULAR HEMOGLOBIN 29.7 pg (27.5-34.5); MEAN CORPUSCULAR HGB CONC 33.7 g/dL (33.2-36.2); MEAN CORPUSCULAR VOLUME 88.2 fL (81-97); MEAN PLATELET VOLUME 6.6 fL (7.4-10.4); MONOCYTES # (AUTO) 0.67 x10^3/uL (0.2-0.8); MONOCYTES % (AUTO) 14 % (2-9); NEUTROPHILS # (AUTO) 3.02 x10^3/uL (1.8-6.8); NEUTROPHILS % (AUTO) 64 % (42-75); PLATELET COUNT 216 x10^3/uL (130-400); RED BLOOD COUNT 4.41 x10^6/uL (4.38-5.82); RED CELL DISTRIBUTION WIDTH 16.2 % (9.4-14.8)
--- NOTE | 2019-06-10 15:11 | NUR ---
ERP AWARE OF D-DIMER
--- NOTE | 2019-06-10 16:18 | NUR ---
PT RESTING QUIETLY. VANCOMYCIN ALMOST COMPLETE
[2019-06-10 16:43] VITALS: BP 133/89
--- NOTE | 2019-06-10 16:43 | NUR ---
REVIEWED DISCHARGE INSTRUCTIONS AND PRESCRIPTION X 1 W/ PT, VERBALIZED UNDERSTANDING TO INFORMATION PROVIDED INCLUDING FOLLOW UP CARE, RETURN PRECAUTIONS, MEDICATIONS AND HAND HYGIENE, DENIED QUESTIONS/CONCERNS. PT AMBULATED FROM ED, NO SIGNS OF DISTRESS NOTED.
== END 2019-06-10 16:46 | disposition home or self-care (01) ==
LOC: ED 15:09
DX: J18.1 Lobar pneumonia, unspecified organism (principal); C90.00 Multiple myeloma not having achieved remission
CPT/HCPCS: 36415; 71045; 80053; 83605; 84484; 85025; 85379; 87040; 96365; 96366; 96368; 99284; J2543; J3370; J7050

== ENCOUNTER 2019-08-16 06:02 | Day surgery (SDC) | payer MEDICAID ==
[~2019-08-16] VITALS: Ht 185.4 cm; Wt 77.0 kg
[2019-08-16 06:57] VITALS: BP 141/84
[2019-08-16 07:19] LABS: BASOPHILS # (AUTO) 0.01 x10^3/uL (0-0.1); BASOPHILS % (AUTO) 0 % (0-1); EOSINOPHILS # (AUTO) 0.06 x10^3/uL (0-0.4); EOSINOPHILS % (AUTO) 2 % (1-7); LYMPHOCYTES % (AUTO) 29 % (22-44); MD NO; MEAN CORPUSCULAR HEMOGLOBIN 29.6 pg (27.5-34.5); MEAN CORPUSCULAR HGB CONC 33.5 g/dL (33.2-36.2); MEAN CORPUSCULAR VOLUME 88.4 fL (81-97); MEAN PLATELET VOLUME 7.6 fL (7.4-10.4); MONOCYTES # (AUTO) 0.54 x10^3/uL (0.2-0.8); MONOCYTES % (AUTO) 16 % (2-9); NEUTROPHILS % (AUTO) 54 % (42-75); PLATELET COUNT 231 x10^3/uL (130-400); RED BLOOD COUNT 3.65 x10^6/uL (4.38-5.82); RED CELL DISTRIBUTION WIDTH 13.8 % (9.4-14.8)
[2019-08-16] MEDS ORDERED: FENTANYL PF 100 MCG/2ML ONE (07:48)
[2019-08-16] MEDS ORDERED: NALOXONE 1 MG/ML, 2ML ONE (07:49)
[2019-08-16] MEDS ORDERED: MIDAZOLAM 1 MG/ML, 5ML ONE ×2 (07:49)
[2019-08-16] MEDS ORDERED: FLUMAZENIL 0.1 MG/1 ML, 5ML ONE (07:49)
== END 2019-08-16 10:00 | disposition home or self-care (01) ==
LOC: RAD 06:02 → OUT 10:00
PROVIDERS: ATTEND Internal Medicine Hematology & Oncology
DX: C90.00 Multiple myeloma not having achieved remission (principal); D64.9 Anemia, unspecified; I10 Essential (primary) hypertension; E83.51 Hypocalcemia; Z79.82 Long term (current) use of aspirin; Z79.899 Other long term (current) drug therapy; Z91.041 Radiographic dye allergy status; Z98.890 Other specified postprocedural states
CPT/HCPCS: 36415; 38222; 77012; 85025; 85060; 85097; 88237; 88264; 88280; 88305; 88311; 88313; 88360; 99156; 99157; J2250; J3010; J2310

== ENCOUNTER 2020-06-26 11:33 | Day surgery (SDC) | payer MEDICAID ==
[~2020-06-26] VITALS: Ht 182.9 cm; Wt 74.8 kg
[~2020-06-26 11:33] MED LIST changes: +METH-640 PO; -METH750T2 PO; -OXYC5TAB3 PO; +OXYC5TAB98 PO; -PANT40TA5 PO; +PANT40TA6 PO
[2020-06-26 12:32] VITALS: BP 135/96
[2020-06-26] MEDS ORDERED: SODIUM CHLORIDE 0.9% 1,000 ML IV SCH ×2 (13:00)
[2020-06-26] MEDS ORDERED: MIDAZOLAM 1 MG/ML, 5ML ONE ×2 (13:08→13:09)
[2020-06-26] MEDS ORDERED: FENTANYL PF 100 MCG/2ML ONE ×2 (13:08)
[2020-06-26] MEDS ORDERED: FLUMAZENIL 0.1 MG/1 ML, 5ML ONE (13:09)
[2020-06-26] MEDS ORDERED: NALOXONE 1 MG/ML, 2ML ONE (13:09)
[2020-06-26 13:12] LABS: BASOPHILS % (AUTO) 1 % (0-1); EOSINOPHILS % (AUTO) 0 % (1-7); LYMPHOCYTES % (AUTO) 17 % (22-44); MEAN CORPUSCULAR HEMOGLOBIN 29.3 pg (27.5-34.5); MEAN CORPUSCULAR HGB CONC 34.3 g/dL (33.2-36.2); MEAN PLATELET VOLUME 6.8 fL (7.4-10.4); MONOCYTES % (AUTO) 5 % (2-9); NEUTROPHILS % (AUTO) 77 % (42-75); PLATELET COUNT 63 x10^3/uL (130-400); RED BLOOD COUNT 4.05 x10^6/uL (4.38-5.82); RED CELL DISTRIBUTION WIDTH 15.8 % (9.4-14.8)
[2020-06-26 13:52] LABS: MD SCAN
== END 2020-06-26 15:16 | disposition home or self-care (01) ==
LOC: RAD 11:33
PROVIDERS: ATTEND Internal Medicine Hematology & Oncology
DX: C90.00 Multiple myeloma not having achieved remission (principal); I10 Essential (primary) hypertension; Z79.01 Long term (current) use of anticoagulants; Z88.3 Allergy status to other anti-infective agents; C79.51 Secondary malignant neoplasm of bone; Z98.890 Other specified postprocedural states; Z79.899 Other long term (current) drug therapy
CPT/HCPCS: 36415; 38222; 77012; 85025; 99156; 99157; J2250; J3010; J7030; J2310